=== PATIENT | female | born 1980 | race Caucasian/White ===

== ENCOUNTER 2022-02-15 07:54 | Outpatient (REF) | payer OTHER, SELFPAY ==
--- NOTE | ~2022-02-15 | XR_ITS ---
EXAMINATION: XR FINGER, LEFT CLINICAL INFORMATION: Pain COMPARISON: None TECHNIQUE: Three views of the left fifth finger. FINDINGS: Bone alignment is normal. No fracture or dislocation is seen. There is a small osteophyte along the volar DIP joint of the fifth finger. Joint spaces are otherwise normal. Soft tissues are normal. XR/XR finger LT min 2V IMPRESSION: Small osteophyte at the DIP joint otherwise unremarkable exam.
[2022-02-15 08:26] LABS: MANUAL DIFF FLAG NO
[2022-02-15 08:35] LABS: Basophils Percent Auto 0.7 % (0-2); Eosinophils Absolute Auto 0.3 X10*3/uL (0.0-0.4); Eosinophils Percent Auto 7.9 % (0-4); Hematocrit 40.7 % (37.0-47.0); Hemoglobin 13.8 g/dl (12.0-16.0); Imm Gran Abs Auto 0.01 X10*3/uL (0.00-0.03); Imm Gran Pct Auto 0.2 % (0.0-0.4); Lymphocytes Absolute Auto 1.6 X10*3/uL (1.2-4.9); Lymphocytes Percent Auto 36.5 % (20-40); Mean Corpuscular HGB Conc 33.9 g/dl (31.0-35.0); Mean Corpuscular Hemoglobin 32.4 pg (27.0-33.0); Mean Corpuscular Volume 95.5 fL (80.0-98.0); Mean Platelet Volume 9.8 fL (9.4-12.3); Monocytes Absolute Auto 0.3 X10*3/uL (0.1-1.2); Neutrophils Absolute Auto 2.1 x10*3/uL (2.0-8.3); Neutrophils Percent Auto 47.7 % (45-73); Platelet Count 236 X10*3/uL (160-400); Red Blood Count 4.26 X10*6/uL (4.20-5.50); Red Cell Distribution Width 12.5 % (11.0-16.0); White Blood Count 4.3 X10*3/uL (4.8-10.8)
[2022-02-15 08:57] LABS: Alanine Aminotransferase 14 U/L (0-31); Albumin Level 4.1 g/dL (3.5-5.0); Alkaline Phosphatase 30 U/L (39-117); Anion Gap 10 (12-20); Aspartate Amino Transferase 17 U/L (5-31); Bilirubin Total 1.1 mg/dL (0.0-1.0); Blood Urea Nitrogen 12 mg/dL (9-16); Calcium 9.4 mg/dL (8.4-10.2); Carbon Dioxide 28 mmol/L (22-29); Chloride 105 mmol/L (96-108); Cholesterol 181 mg/dL; Estimated Glomerular Filt Rate > 60; Glucose Random 89 mg/dL (60-115); HDL Cholesterol 63 mg/dL; LDL Cholesterol Calculated 106 mg/dl; Potassium 4.5 mmol/L (3.3-5.1); Sodium 138 mmol/L (135-145); Total Protein 6.9 g/dL (6.5-8.0); Triglycerides 61 mg/dL
[2022-02-15 09:21] LABS: Free T4 (Free Thyroxine) 0.99 ng/dL (0.71-1.85); Thyroid Stimulating Hormone 1.03 uIU/mL (0.32-4.0); Vitamin D 25-OH Total 29.4 ng/mL (>30)
== END 2022-02-15 07:55 | disposition home or self-care (01) ==
LOC: HO.LAB 07:54
PROVIDERS: PCP Internal Medicine; Visit Provider Physician Assistant
DX: Z00.00 Encounter for general adult medical examination without abnormal findings (principal); M79.645 Pain in left finger(s)
CPT/HCPCS: 36415; 73140; 80053; 80061; 82306; 84439; 84443; 85025

== ENCOUNTER 2023-05-23 15:12 | Outpatient (REF) | payer OTHER, SELFPAY ==
--- NOTE | ~2023-05-23 | XR_ITS ---
EXAMINATION: XR LUMBOSACRAL SPINE CLINICAL INFORMATION: Low back pain Patient states chronic back pain, no injury COMPARISON: None available. TECHNIQUE: Three views of the lumbosacral spine. FINDINGS: There are probably small riblets extending off the T12 vertebral body and 4 nonrib-bearing lumbar-type vertebral bodies. The height of the vertebral bodies is well-maintained. There is also the usual lumbar lordosis which can be seen with muscle spasm. There is mild disc space narrowing at L2-L3 and L3-L4. There is multilevel degenerative facet joint disease. There is mild retrolisthesis of L1 respect to L2, and L3 respect to L4. XR/XR lumbar spine 2-3V IMPRESSION: 1. Muscle spasm. 2. Degenerative disc disease at L2-L3 and L3-L4. 3. Multilevel degenerative facet joint disease. 4. Multilevel retrolisthesis.
== END 2023-05-23 15:13 | disposition home or self-care (01) ==
LOC: HO.XRAY 15:12
PROVIDERS: PCP Internal Medicine; Visit Provider Physician Assistant
DX: M54.59 Other low back pain (principal); G89.29 Other chronic pain
CPT/HCPCS: 72100

== ENCOUNTER 2023-11-03 08:30 | Outpatient (REF) | payer OTHER, SELFPAY ==
--- NOTE | ~2023-11-03 | XR_ITS ---
EXAMINATION: XR SACROILIAC JOINTS CLINICAL INFORMATION: Inflammation of sacroiliac joint Sacroiliitis, not elsewhere specified COMPARISON: None available. TECHNIQUE: 3 views of the sacroiliac joints FINDINGS: Bones and soft tissues are normal. No fracture. Alignment is anatomic. Sacroiliac joint spaces are well-maintained without erosions or surrounding sclerosis. T-shaped IUD is seen in the pelvis XR/XR sacroiliac joint min 3V IMPRESSION: Normal sacroiliac joints.
== END 2023-11-03 08:31 | disposition home or self-care (01) ==
LOC: HO.XRAY 08:30
PROVIDERS: PCP Internal Medicine; Visit Provider Internal Medicine
DX: M46.1 Sacroiliitis, not elsewhere classified (principal)
CPT/HCPCS: 72202

== ENCOUNTER 2024-04-26 10:02 | Outpatient (REF) | payer OTHER, SELFPAY ==
[2024-04-26 10:44] LABS: MANUAL DIFF FLAG NO
[2024-04-26 12:03] LABS: Basophils Absolute Auto 0.1 X10*3/uL (0.0-0.2); Basophils Percent Auto 1.2 % (0-2); Eosinophils Absolute Auto 0.5 X10*3/uL (0.0-0.4); Eosinophils Percent Auto 9.2 % (0-4); Hematocrit 41.2 % (37.0-47.0); Hemoglobin 14.1 g/dl (12.0-16.0); Imm Gran Abs Auto 0.02 X10*3/uL (0.00-0.03); Imm Gran Pct Auto 0.4 % (0.0-0.4); Lymphocytes Absolute Auto 1.5 X10*3/uL (1.2-4.9); Lymphocytes Percent Auto 29.9 % (20-40); Mean Corpuscular HGB Conc 34.2 g/dl (31.0-35.0); Mean Corpuscular Hemoglobin 32.2 pg (27.0-33.0); Mean Corpuscular Volume 94.1 fL (80.0-98.0); Mean Platelet Volume 10.8 fL (9.4-12.3); Monocytes Absolute Auto 0.4 X10*3/uL (0.1-1.2); Monocytes Percent Auto 7.8 % (2-11); Neutrophils Absolute Auto 2.6 x10*3/uL (2.0-8.3); Neutrophils Percent Auto 51.5 % (45-73); Platelet Count 288 X10*3/uL (160-400); Red Blood Count 4.38 X10*6/uL (4.20-5.50); Red Cell Distribution Width 12.3 % (11.0-16.0)
[2024-04-26 12:07] LABS: Estimated Average Glucose 97 mg/dL
[2024-04-26 12:45] LABS: Alanine Aminotransferase 15 U/L (0-31); Albumin Level 4.2 g/dL (3.5-5.0); Alkaline Phosphatase 29 U/L (39-117); Anion Gap 10 (12-20); Aspartate Amino Transferase 18 U/L (5-31); Bilirubin Total 0.6 mg/dL (0.0-1.0); Blood Urea Nitrogen 12 mg/dL (9-16); Calcium 8.9 mg/dL (8.4-10.2); Carbon Dioxide 26 mmol/L (22-29); Chloride 106 mmol/L (96-108); Cholesterol 163 mg/dL (<200); Estimated Glomerular Filt Rate > 60; Glucose Random 81 mg/dL (60-115); HDL Cholesterol 56 mg/dL (>40); LDL Cholesterol Calculated 98 mg/dL (<100); Potassium 4.8 mmol/L (3.3-5.1); Sodium 137 mmol/L (135-145); Total Protein 7.1 g/dL (6.5-8.0); Triglycerides 47 mg/dL (<150)
[2024-04-26 13:01] LABS: TSH reflex Free T4 0.69 uIU/mL (0.32-4.0)
[2024-05-01 12:13] LABS: Testosterone, Total 15 ng/dL (2-45)
[2024-05-01 13:04] LABS: VITAMIN D (1,25 OH) D3 51 pg/mL; Vit D (1,25-Dihydroxy) Total 51 pg/mL (18-72); Vitamin D (1,25 OH) D2 <8 pg/mL
[2024-05-01 20:08] LABS: Estrogen 337 pg/mL
[2024-05-03 02:39] LABS: Follicle Stimulating Hormone 2.9 mIU/mL; Prolactin 6.6 ng/mL
[2024-05-03 20:49] LABS: Estradiol Ultra Sensitive 161 pg/mL
== END 2024-04-26 10:03 | disposition home or self-care (01) ==
LOC: HO.LAB 10:02
PROVIDERS: PCP Internal Medicine; Visit Provider Physician Assistant
DX: Z00.00 Encounter for general adult medical examination without abnormal findings (principal); N95.9 Unspecified menopausal and perimenopausal disorder
CPT/HCPCS: 36415; 80053; 80061; 82652; 82670; 82672; 83001; 83002; 83036; 84144; 84146; 84403; 84443; 85025; 86787

== ENCOUNTER 2025-06-08 13:47 | Outpatient (AMB) | payer OTHER, SELFPAY ==
--- OUTSIDE RECORDS SUMMARY | 2022-11-15 19:25 | XMS_ITS | Encounter Summary ---
Author Organization [facility] Address [address] [place] [address] [place] [address] Phone Care Team Providers Care Java Systems Analyst Name Role Phone Scott Shrestha DO Primary Care Provider [phone] Encounter Details Date Type Department Care Team (Late st Contact Info) Description 11/15/2022 6:25 PM EST Hospital Encounter [facility] [address] [place] [address] Miriam Canela, [facility] [address] [facility], [address] [place] [address] [email or web address] Social History Tobacco Use Types Packs/Day Years [...] No fracture or dislocation. Miriambean He Hilton STUDIO ENGINEER IMG XR LOWER EXTREMITY Final Result documented in this encounter Visit Diagnoses Not on filedocumented in this encounter Care Teams Java Systems Analyst Relationship Specialty Start Date End Date Scott Shrestha DO [email or web address] PCP - General Internal Medicine 05/22/20 documented as of this encounter Additional Source Comments The information contained in this document represents components of the legal health record. It is not the complete legal health record.[facility]
--- NOTE | 2025-06-08 13:58 | HO.SPINEOV ---
Intake Visit Reasons: LBP Intake Note: Ms. Lr is here c/o low back pain. MRI done @ [facility] (brought disc). Former Hand Required: No Allergies Sulfa (Sulfonamide Antibiotics) (SULFA (SULFONAMIDE ANTIBIOTICS)) Allergy (Unknown, Unverified 07/01/20 15:18) FEVER, RASH Sulfacet-R Allergy (Unknown, Uncoded 03/03/19 00:00) Assessment & Plan Assessment & Plan (1) Back pain: Code(s): M54.9 - Dorsalgia, unspecified Category: Medical Plan This is a 45-year-old female presents today for evaluation of back pain. She feels like it may have started after her 2nd child was born via . She remembers going through physical therapy at that time because her body just did not feel quite right and strong enough. Since that time she has continued to have back pain which she describes as being over the lower lumbar area radiating down toward the sacrum. She was on ibuprofen but stopped that because it was not all that helpful and she did not want to just continue to take it with no endpoint in mind. She will modify her activities as needed but generally continues to be active, likes to take walks, plays soccer and ride her bike. When she is doing these things is not all that painful, but when she stops doing them she will notice the feelings of discomfort in her low back. There is also an associated feeling of tightness in her shoulders and tightness in her hips as well. She was seen at [facility] and they were heading in the direction of injections but she was looking for some kind of definitive answer as to what was causing it and what the injections would fix. She has not proceeded with that as of yet. She is here today with an MRI showing disc degeneration at L3-4 and L4-5. PMH: Otherwise healthy, history of in 2014 2017 Social hx: Does not smoke, occasionally uses alcohol and some marijuana Medications: Multivitamin Allergies: Sulfa Physical exam: Strength, gait and reflexes are normal Imaging review: Lumbar MRI shows mild disc degeneration at L3-4, [id number] disc degeneration at L4-5. There is some narrowing of the left L4 foramen secondary to disc bulging. There is no evidence of fracture, acute herniated disc, subluxation or malalignment of the spine. Impression: 45-year-old female with history of back pain dating back to 2018, is associated with feelings of tightness in her shoulders and tightness in her hips. She continues to do many of the activities she enjoys, but is frustrated that she has always seems to be in some degree of pain with her lumbar region. The pain can radiate down lower into ordered her sacrum as well. The exact source of this pain has been elusive as it has not responded to multiple rounds of physical therapy, activity modification, ibuprofen etc.. She does have some disc degeneration at L3-4 and L4-5 but it is [id number] at worse. It would be hard to suggest fusion in this circumstance given that she is so functional right now. Artificial disc is a consideration, but I would have to ask Dr. Meléndez if he thinks the discs are bad enough to warrant that. I will review her films and see if he has any other thoughts. In the meantime unfortunately I do not have an answer for her as to how to necessarily fix this. Thank you for allowing us to care for your patient. The total time spent with this visit with this patient was 45 minutes reviewing history, physical exam, lumbar imaging review, and implementation of treatment plan or further diagnostic testing Dalton Meléndez MD,PhD [facility] Coding Level of Care Code New Pt Level 4 (08733) Diagnoses Back pain M54.9
--- OUTSIDE RECORDS SUMMARY | 2025-06-08 15:06 | XMS_ITS | Clinical Summary ---
Author Organization [facility] Address [address] [place] [address] Phone Care Team Providers Care Product Coordinator Name Role Phone Scott Shrestha DO Primary Care Provider [phone] Allergies Active Allergy Reactions Criticality Noted Date Comments Sulfa (Sulfonamide Antibiotics) Medications diazePAM (VALIUM) 5 MG tablet Take 1 tablet (5 mg total) by mouth every 8 (eight) hours as needed for other (free text field) (muscle spasm). 10 tablet 0 Active Additional Information Patient not taking.Reported on 11/15/2022 predniSONE (DELTASONE) 10 MG tablet Take 1 tablet (10 mg total) by mouth daily. 60 mg for 2 days, then 40 mg for 2 days, then 20 mg for 2 days, then 10 mg for 2 days 26 tablet 0 Active Additional Information Patient not taking.Reported on 11/15/2022 biotin 10 mg Tab 1 tablet Active ibuprofen (ADVIL,MOTRIN) 800 MG tablet ibuprofen 800 mg tablet TAKE 1 TABLET BY MOUTH EVERY 8 HOURS FOR 5 DAYS Active Family History Medical History Relation Comments Hypertension Father 2 Stroke Father 2 CV disease Maternal Grandfather 2 Cancer Maternal Grandfather 2 Relation Status Comments Father 1 Alive Father 2 Maternal Grandfather 1 Maternal Grandfather 2 Social History Tobacco Use Types Packs/Day Years [...] AM EDT Sexual Orientation Not on file Last Filed Vital Signs Vital Sign Reading Time Taken Comments Blood Pressure 111/69 11/15/2022 5:52 PM EST Pulse 47 11/15/2022 5:52 PM EST Temperature 36.8 C (98.2 F) 11/15/2022 5:52 PM EST Respiratory Rate 16 11/15/2022 5:52 PM EST Oxygen Saturation 99% 11/15/2022 5:52 PM EST Inhaled Oxygen Concentration - - Weight 59 kg (130 lb) 11/15/2022 5:52 PM EST Height 157.5 cm (5' 2 ) 11/15/2022 5:52 PM EST Body Mass Index 23.78 11/15/2022 5:52 PM EST Plan of Treatment Health Maintenance Due Date Last Done Comments LIPID PANEL 1980 DEPRESSION SCREENING 1992 HEPATITIS C SCREENING 1998 HIV ONE-TIME SCREENING (18-6 5 YEARS) 1998 PAP SMEAR 2001 MAMMOGRAM 2020 COVID-19 VACCINE (2023-2 5 season) 2024 09/04/2021, 02/01/2021, 01/04/2021 COLOGUARD 2025 COLONOSCOPY 2025 COLORECTAL CANCER SCREENING 2025 FIT TEST 2025 FOBT 2025 SIGMOIDOSCOPY 2025 VIRTUAL COLONOSCOPY 2025 Adult Td,Tdap Booster 09/05/2027 09/05/2017 , 08/15/2017 SMOKING STATUS SCREENING (On ce After 26 Yrs) Completed 05/22/2020 HEPATITIS A VACCINES Aged Out No long er eligible based on patient's age to complete this topic HIB VACCINES Aged Out No longer eligi ble based on patient's age to complete this topic MENINGOCOCCAL VACCINES (ACWY) Aged Out No longer eligible based on patient's age to complete this topic MENINGOCOCCAL VACCINES (B) Aged Out N o longer eligible based on patient's age to complete this topic PNEUMOCOCCAL VACCINES (0-49 years) Aged Out No longer eligible b ased on patient's age to complete this topic Medical Devices Not on file Insurance CHOICE [place]ICE [place] [address] [place] [address] CHOICE CHOICE [facility] CHO[place] [address] [place] [address] COMMUNITY CHOICE CHOICE [facility] CHOICE Care Teams Product Coordinator Relationship Specialty Start Date End Date Scott Shrestha DO [email or web address] PCP - General Internal Medicine 05/22/20 Additional Source Comments The information contained in this document represents components of the legal health record. It is not the complete legal health record.[facility]
== END 2025-06-08 14:42 | disposition home or self-care (01) ==
LOC: HO.HNS 13:48
PROVIDERS: PCP Internal Medicine; Visit Provider Physician Assistant
DX: M54.9 Dorsalgia, unspecified (principal)
CPT/HCPCS: 99204

== ENCOUNTER 2025-09-04 08:02 | Outpatient (AMB) | payer OTHER, SELFPAY ==
--- OUTSIDE RECORDS SUMMARY | 2022-11-15 18:25 | XMS_ITS | Encounter Summary ---
Author Organization [facility] Address [address] [place] [address] [place] [address] Phone Care Team Providers Care Clerk Checker Name Role Phone Scott Shrestha DO Primary Care Provider [phone] Encounter Details Date Type Department Care Team (Late st Contact Info) Description 11/15/2022 6:25 PM EST Hospital Encounter [facility] [address] [place] [address] Miriam Canela, [facility] [address] [facility], [address] [place] [address] [email or web address] Social History Tobacco Use Types Packs/Day Years [...] No fracture or dislocation. Miriambean He Hilton GO CART MECHANIC IMG XR LOWER EXTREMITY Final Result documented in this encounter Visit Diagnoses Not on filedocumented in this encounter Care Teams Clerk Checker Relationship Specialty Start Date End Date Scott Shrestha DO [email or web address] PCP - General Internal Medicine 05/22/20 documented as of this encounter Additional Source Comments The information contained in this document represents components of the legal health record. It is not the complete legal health record.[facility]
--- NOTE | 2025-09-04 08:04 | A.OFFVIS_ITS ---
Vital Signs 09/04/25 08:11 Height 5 ft 2 in Weight 133 lb BMI 24.3 BP 110/70 Blood Pressure Location Rt brachial Position Sitting Pulse 70 Pulse Source Pulse Oximeter Pulse Oximetry (%) 96 Oxygen Delivery Method Room Air Intake Visit Reasons: colo screen Intake Note: New pt for initial colo screening. No pertinent surgical or FMHx. CC: C.O. occasional reflux and intermittent BM irregularities. Pt reports having intermittent bloating, constipation and diarrhea. Typically doesn't last longer than a week. Sustainable Communities Designer Required: No Accompanied by: Self / Same As Patient Allergies Sulfa (Sulfonamide Antibiotics) (SULFA (SULFONAMIDE ANTIBIOTICS)) Allergy (Unknown, Unverified 07/01/20 15:18) FEVER, RASH HPI HPI colo screen: Details: 45 year old? female is here today for pre colonoscopy screening.? Patient was sent to us by her PCP.? This is her first colonoscopy screening.? Patient denies any gastrointestinal symptoms in the past or at present.? However patient does admit to having occasional abdominal bloating with intermittent constipation and diarrhea. Patient reports that usually happens about her menstruation. Denies any personal or family history of gastrointestinal disease, colon polyps, or CRC.? Denies history of difficulty with sedation or anesthesia in the past.? Negative for history of sleep apnea.? Denies any history of cardiac, renal, pulmonary, or hepatic disease.?? No history of infectious? diseases like hepatitis A, B, C, HIV or tuberculosis.? Patient is not on any anticoagulation [facility] Medical History Perimenopausal disorder COVID-19 Bone spur GERD (gastroesophageal reflux disease) Lumbosacral radiculitis Chronic low back pain Cervical radiculopathy Degeneration of lumbar intervertebral disc Inflammation of sacroiliac joint Bronchitis Pneumonia Molluscum contagiosum Varicella Surgical History delivery delivered Family History Maternal Grandfather Bone cancer Myocardial infarction Father CVA (cerebral vascular accident) Daughter Seizure Social History Patient Tobacco Use Status: Never used Tobacco Review of Systems Const Denies weight gain and Denies weight loss ENT Reports no additional complaints, Denies dysphagia and Denies odynophagia Card Reports no additional complaints Resp Reports no additional complaints GI Denies abdominal pain, Denies belching, Denies melena, Denies bloating, Denies change in bowel habits, Denies dysphagia, Denies excessive flatus, Denies dyspepsia, Denies heartburn, Denies diarrhea, Denies loose stools, Denies nausea, Denies odynophagia and Denies vomiting Musc Reports no additional complaints Neuro Reports no additional complaints Psych Reports no additional complaints Endo Reports no additional complaints Physical Exam Vital Signs: Last Vital Signs Pulse 70 09/04/25 08:11 BP 110/70 09/04/25 08:11 Pulse Ox 96 09/04/25 08:11 Oxygen Delivery Method Room Air 09/04/25 08:11 BMI result Body Mass Index 24.3 Const General: healthy appearing, no acute distress and well developed Nutritional Appearance: well nourished Orientation/consciousness: patient oriented x3 Eyes General: appearance normal, both eyes and all related structures Cardio Rate: regular rate GI Inspection: Yes normal to inspection and No distended Palpation (GI): Soft to palpation, not firm, nontender and No hepatosplenomegaly present Auscultation: normal bowel sounds General: Yes no CVA tenderness Back/Spine/Pelvis Back: no CVA tenderness Skin General skin exam: elasticity normal, turgor normal and dry skin Neuro General: patient oriented x3 Psych Appearance: grossly normal Mental Status: mental status grossly normal Assessment & Plan Assessment & Plan (1) Screen for colon cancer: Code(s): Z12.11 - Encounter for screening for malignant neoplasm of colon Plan Patient denies any cardiac or respiratory symptoms.? Occasional bowel irregularities with abdominal bloating, alternating constipation and diarrhea. Patient reports symptoms are infrequent. Denies any issues with anesthesia in the past.? Denies any history of sleep apnea.? No history infectious diseases in the past or present.? Not on any anticoagulation therapy.? No family or personal history of colon cancer or polyps.? Patient denies melena, hematochezia, unintentional weight loss or ribbon like stools.? Discussed at length the pre- procedure,? prep, diet & medications as well as what to expect prior, during and after the procedure.?? Stressed the importance of good bowel prep.? Recommended the use of Vaseline or Calmoseptine OTC & baby wipes with bowel movements to promote comfort.? ?Patient verbalizes understanding and agrees to plan of care.? She was given the opportunity to ask questions and all questions answered.? We will see her after the procedure.? Orders: Referrals GI Procedure Notification Z12.11 - Encounter for screening for malignant neoplasm of colon Medications: New bisacodyl (Dulcolax (bisacodyl)) take 4 tabs at noon the day before your colonoscopy 20 mg (4 x 5 mg) PO ONCE 4 tabs 0RF constipation 1 day Z12.11 - Encounter for screening for malignant neoplasm of colon polyethylene glycol 3350 (Miralax) As directed by gastroenterology department at [facility] 238 grams PO ONCE 238 grams 0RF Z12.11 - Encounter for screening for malignant neoplasm of colon Coding Level of Care Code New Pt Level 3 (80753) Diagnoses Screen for colon cancer Z12.11 Time Spent (min) 40 Comment 30 minutes spent with patient and additional 10 minutes spent reviewing her records
--- OUTSIDE RECORDS SUMMARY | 2025-09-04 08:05 | XMS_ITS | Data Portability ---
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 REVIEW OF PRIOR EXTERNAL NOTES/RESULTS, ORDERING OF TEST(S) CATEGORY 2. ASSESSMENT REQUIRING INDEPENDENT HISTORIAN(S) INCLUDE WHO THE HISTORIAN IS AND RELATION TO PT AND WHY PT IS UNABLE TO GIVE COMPLETE HISTORY ELEMENT 3: RISK (LOW) RISK OF COMPLICATIONS AND/OR MORBIDITY OR MORTALITY OF PATIENT MANAGEMENT PROVIDER MUST THOROUGHLY DOCUMENT ALL OF THE ELEMENTS COVERED Not available 11/02/2023 16:47:40 Plan of Treatment Reminders Order Date Submit Date Provider Last Modified By Organization Details Last Modified Time Details Appointments ANNUA L EXAM 2025 02:15P ISI KOTHARI Not available Not available Not available Lab varic alise paez r virus IgG Ab, titer , serum 2023 024 [facility], [address] [place] [address], [place], [address], 04/29/2024 11:22:24 estra diol, serum 2023 024 [facility], [address] [place] [address], [id number], 05/05/2024 11:55:52 proge stero ne, serum 2023 024 [facility], [address] [place] [address], [address], 04/15/2024 09:08:27 lh + FSH, serum 2023 024 [facility], [address] [place] [address], [address], 05/05/2024 11:55:52 testo stero ne, total , serum 2023 024 [facility], [address] [place] [address], [address], 05/02/2024 11:24:55 estro gen, total , serum 2023 024 [facility], [address] [place] [address], [address], 05/02/2024 11:24:55 prola ctin, serum 2023 024 [facility], [address] [place] [address], [address], 05/05/2024 11:55:52 CBC w/ auto diff 2023 024 [facility], [address] [place] [address], [address], 04/15/2024 09:08:27 CMP, serum or plasm a 2023 024 [facility], [address] [place] [address], [address], 04/15/2024 09:08:28 vitam in D, 25-hy droxy , total , serum 2023 024 [facility], [address] [place] [address], [address], 04/15/2024 09:08:27 lipid panel , blood 2023 024 [facility], [address] [place] [address], [address], 04/15/2024 09:08:27 TSH + free T4, serum 2023 024 [facility], [address] [place] [address], [address], 04/15/2024 09:08:27 hemog lobin A1c, QN, blood 2023 024 [facility], [address] [place] [address], [address], 04/15/2024 09:08:27 Referral gastr kathia wyatt ist refer ral 2024 025 [facility], [address] [place] [address] Dr, [address], [place], [address], 05/18/2025 08:59:08 Procedures None recor ded. Surgeries None recor ded. Imaging MRI, lumba r spine , w/o contr ast - OPEN [facility] 2024 [email or web address], [facility], [address], [place], [address], 05/19/2025 08:22:06 XR, sacro iliac joint (s), 3 or more view 2023 024 [facility] (Imaging), [address] [place] [address], [address], 11/06/2023 09:27:50 XR, lumbo sacra l spine , 2 or 3 view 2022 023 [email or web address] 10 [facility] (Imaging), [address] [place] [address], [address], 04/18/2023 10:49:44 Medication Orders diclo fenac sodiu m 75 mg table t,del ayed relea se 2022 023 [place] [id number], [address] [place], [address], 04/04/2023 16:26:09 tizan idine 4 mg table t 2022 023 [email or web address] [id number], [address] [place], [address], 04/15/2024 08:56:25 Patient TargetsNo targets recorded. 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 [facility] (Medical Records) [address] [place], [address], 02/17/2022 10:34:17 08/04/20 22 08/04/2022 MAMMO , scree araceli, digit al, bilat eral No observ ation record ed. [email or web address] [facility]) [address], [place], [address], 08/05/2022 11:38:52 05/24/20 23 05/23/2023 XR, lumbo sacra l spine , 2 or 3 view No observ ation record ed. [facility] (Medical Records) [address] [place], [address], 05/25/2023 13:28:28 08/07/20 23 08/07/2023 MAMMO , scree araceli, digit al, bilat eral No observ ation record ed. [email or web address] [facility]) [address], [place], [address], 08/07/2023 18:24:06 11/06/19 24 11/03/2023 XR, sacro iliac joint (s), 3 or more view No observ [facility]ion [email or web address] [address] [facility], [place], [address], 11/12/2023 08:37:21 05/21/20 25 05/20/2025 MRI, lumba r spine , w/o contr ast No observ ation record ed. [email or web address] [facility] [address], [address], 05/22/2025 09:03:47 05/21/20 25 05/20/2025 MRI, lumba r spine , w/o contr ast No observ ation record ed. [email or web address] [facility] [address] [address], [place], [address], 05/22/2025 09:15:52 Result Notes None recorded. Problems Name Problem SNOMED Code Status Onset Date Resolution Date Notes Provider Name and Address Organization Details Recorded Time Molluscu m contagio sum infectio n 83111444 Active 2017 shave bx Not Available [facility] 3 19:48:[address] head. Headaches x 2 years- Unremarka ble Not Available [facility] 3 19:48:03 Varicell a 97133166 Active 2017 Not Available [facility] 3 19:48:03 Pneumoni a 719526105 Active 2017 Not Available [facility] 3 19:48:03 Bronchit is 84398694 Active 2017 Not Available [facility] 3 19:48:03 Seasonal allergy 231289296 Active 2017 Not Available [facility] 3 19:48:03 Heartbur n 89713988 Active 2017 Not Available [facility] 3 19:48:03 Cervical radiculo lavaro 61970863 Active 2021 Not Available [facility] 3 19:48:03 Pain in finger 47073125 Active 2021 [facility] Available [facility] 3 19:48:03 Impacted cerumen of bilatera l ears 31437323520 84561 Active 2021 Not Available [facility] 3 19:48:02 Bone spur of left hand 64006651225 9106 Active 2021 Not Available [facility] 3 19:48:03 COVID-19 317519544 Active 2022 Not Available [facility] 3 19:48:03 Chronic low back pain 678021870 Active 2022 ISI COLVIN [address] [place] [address], [address], [facility] 3 16:24:35 Inflamma tion of sacroili ac joint 76932474 Active 2023 Scott Shrestha DO [address] [place] [address], [address], [facility] 4 16:48:00 Weakness of left lower limb Active 2023 Scott Shrestha DO [address] [place] [address], [address], [facility] 4 22:06:45 Lumbosac ral radiculi tis 23905072 Active 2023 Scott Shrestha DO [address] [place] [address], [address], [facility] 4 19:10:19 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 Procedures Surgical History Date Name Laterality Status Provider Name and Address Organization Details Recorded Time 02/04/20 22 Cerumen Removal completed ISI COLVIN [address] [place] [address], [address], [facility] 02/03/2022 15:16:59 07/29/20 20 Date of Last Pap Smear completed Aleida Fenton [facility] 08/09/2020 16:15:53 10/15/19 18 delivery completed Jerilyn KIMI [address], [address], [facility] 06/06/2019 09:11:14 10/15/19 15 delivery completed [facility] [address], [address], [facility] 06/06/2019 09:11:11 Imaging Results None recorded. Procedure Notes None recorded. Medical Equipment None Reported. Allergies Allergen ID Allergen Name Allergen Category Reaction Reaction Severity Criticality Documentation Date Start Date Code Code System Note Provider Name and Address Organization Details Recorded Time 764 Substance with sulfonami de structure and antibacte rial mechanism of action (substanc e) medicatio n Not available Not available Not available 01/15/2018 62655 8003 SNOMED Aleida ramirez [facility] 8 08:17:13 Medications Name Sig Start Date Stop Date Status Note LastModified by Organization Details LastModified Time prednisone 10 mg tablet TAKE 50 MG X 3 DAYS TAKE 40 MG X 3 DAYS TAKE 30 MG X 3 DAYS TAKE 20 MG X 3 DAYS TAKE 10 MG X 3 DAYS 04/04 completed Not Available Not Available Not Available Prenatabs Rx 29 mg iron-1 mg tablet 10/04 completed Not Available Not Available Not Available azithromyci n 250 mg tablet 10/04 completed Not Available Not Available Not Available ibuprofen 800 mg tablet TAKE 1 TABLET BY MOUTH EVERY 8 HOURS FOR 5 DAYS active Not Available Not Available No t Available tizanidine 4 mg tablet Take 1 tablet 3 times a day by oral route as needed for 30 days. 04/15 completed Not Available Not Available Not Available prednisone 20 mg tablet 03/25 completed Not Available Not Available Not Available Zyrtec 10 mg tablet Take 1 tablet every day by oral route. active Not Available Not Available No t Available triamcinolo ne acetonide 0.1 % topical cream APPLY TO AFFECTED AREAS OF RASH TWICE DAILY UNTIL RESOLVED. REPEAT NEEDED FOR FLARES. 01/23 completed Not Available Not Available Not Available amoxicillin 500 mg tablet TAKE 1 TABLET BY MOUTH EVERY 8 HOURS FOR 7 DAYS 02/03 completed Not Available Not Available Not Available alprazolam 0.5 mg tablet TAKE 1 TAB 1 HOUR PRIOR TO INJECTION . active Not Available Not Available No t Available amoxicillin 875 mg tablet 03/25 completed Not Available Not Available Not Available diclofenac potassium 50 mg tablet Take 1 tablet twice a day by oral route. 10/04 completed Not Available Not Available Not Available diclofenac sodium 75 mg tablet,richy yed release TAKE 1 TABLET BY MOUTH TWICE A DAY WITH MEALS FOR 30 DAYS 2022 active Not Available Not Available Not Avai lable amoxicillin 250 mg capsule TAKE 1 CAPSULE BY MOUTH EVERY 8 HOURS FOR 7 DAYS 02/03 completed Not Available Not Available Not Available fluticasone propionate 50 mcg/actuati on nasal spray,suspe nsion 03/25 completed Not Available Not Available Not Available amoxicillin 875 mg-potassiu m clavulanate 125 mg tablet Take 1 tablet every 12 hours by oral route for 7 days. 06/06 completed Not Available Not Available Not Available Boostrix Tdap 2.5 Lf unit-8 mcg-5 Lf/0.5 mL intramuscul ar suspension 10/04 completed Not Available Not Available Not Available ProAir HFA 90 mcg/actuati on aerosol inhaler 01/15 completed Not Available Not Available Not Available Probiotic 01/23 completed Not Available Not Available Not Available Flucelvax Quad 1751-6008 (PF) 60 mcg (15 mcg x 4)/0.5 mL IM syringe 10/04 completed Not Available Not Available Not Available Paxlovid 300 mg (150 mg x 2)-100 mg tablets in a dose pack TAKE 3 TABLETS BY MOUTH TWICE A DAY FOR 5 DAYS 04/04 completed Not Available Not Available Not Available Vitals Date Recorded Body height Body mass index (BMI) Body weight Oxygen saturation Heart rate Systolic And Diastolic Provider Name and Address Organization Details Last Updated DateTime 4 157.48 cm 24.1 kg/m2 19322.1 9 g 99 % 58 /min 100/68 mm[Hg] Deisi Ledezma [facility] 4 16:33:39 Date Recorded Body height Oxygen saturation Heart rate Systolic And Diastolic Provider Name and Address Organization Details Last Updated DateTime 02/03/2022 158.12 cm 97 % 69 /min 98/60 mm[Hg] Brittany Fritz [facility] 02/03/2022 14:45:27 Date Recorded Body height Body mass index (BMI) Body weight Heart rate Oxygen saturation Systolic And Diastolic Provider Name and Address Organization Details Last Updated DateTime 3 157.48 cm 24.7 kg/m2 13135.9 7 g 71 /min 98 % 98/80 mm[Hg] Deisi Ledezma [facility] 3 15:46:44 Date Recorded Body height Body mass index (BMI) Body weight Heart rate Oxygen saturation Systolic And Diastolic Provider Name and Address Organization Details Last Updated DateTime 4 157.48 cm 24 kg/m2 31163.3 2 g 58 /min 99 % 106/62 mm[Hg] Jeffrey Tran [facility] 4 08:57:48 Date Recorded Body height Body mass index (BMI) Body weight Heart rate Oxygen saturation Systolic And Diastolic Provider Name and Address Organization Details Last Updated DateTime 5 157.48 cm 24.1 kg/m2 48327.1 9 g 58 /min 98 % 110/72 mm[Hg] Deisi Ledezma SOFIA Fitch [facility] 14:38:13 Social History Question Answer Notes LastModified by Organizat ion Details LastModified Time Tobacco Smoking Status Never Smoker Not Available [facility] 08/17/2020 03:36:23 What Was The Date Of Your Most Recent Tobacco Screening? 04/15/2024 [email or web address] Information not available 04/15/2024 How Much Tobacco Do You Smoke? No [id number] Information not available 08/17/2020 How Many Years Have You Smoked Tobacco? 0 [id number] Information not available 08/17/2020 Sex: Unknown Functional Status Question Answer Note LastModified by Organizat ion Details LastModified Time Do you or have you ever used any other forms of tobacco or nicotine? No [email or web address] Information not available 05/15/2025 Do you or have you ever used smokeless tobacco? Never used smokeless tobacco [email or web address] Information not available 01/23/2022 Do you or have you ever used e-cigarettes or vape? Never used electronic cigarettes [email or web address] Information not available 01/23/2022 Mental Status None recorded. Family History Relationship Description Onset Age of this Age Resolved Age Notes LastModified by Organization Details LastModified Time Maternal Grandfather History of malignant neoplasm of bone [email or web address] Not available 08/2022 14:22:20 Maternal Grandfather Myocardial infarction firefi karen [email or web address] Not available 06/06/2019 09:10:28 Father Cerebrovascu lar accident 59 [email or web address] Not available 12/2017 08:25:08 Daughter Seizure smoke in utero, seizur e at [email or web address] Not available 01/15/2018 08:25:46 Medical History No medical history recorded. Gynecological History Statement/Question Response Sexually Active? Y On BCP's at Conception? Y STIs/STDs N Date of Last Pap Smear 07/29/2020 Current Control Method None Age at Menarche 13 Age at First Child 35 Obstetrics History GPAL:G 3 P 2 0 1 2 Type Value Multiple Births 0 Full Term 2 Induced 1 Spontaneous 0 Premature 0 Living 2 Ectopics 0 Total 3 Immunizations Vaccine Type Date Status Note Provider Nam e and Address Organization Details Recorded Time COVID-19, mRNA, LNP-S, PF, 100 mcg/0.5mL dose or 50 mcg/0.25mL dose 1 completed Not Available [facility] 11/15/2022 19:48:03 COVID-19, mRNA, LNP-S, PF, 100 mcg/0.5mL dose or 50 mcg/0.25mL dose 1 completed Not Available [facility] 11/15/2022 19:48:03 COVID-19, mRNA, LNP-S, PF, 100 mcg/0.5mL dose or 50 mcg/0.25mL dose 1 completed Not Available [facility] 11/15/2022 19:48:03 Influenza, split virus, quadrivalent, preservative 7 completed Not Available [facility] 11/15/2022 19:48:03 Influenza, split virus, quadrivalent, preservative 1 completed Not Available [facility] 11/15/2022 19:48:03 Influenza, split virus, quadrivalent, preservative 2 completed Not Available [facility] 11/15/2022 19:48:03 Tdap 7 completed Not Available [facility] 11/15/2022 19:48:03 Past Encounters Encounter ID Performer Location Encounter Start Date Encounter Closed Date Diagnosis/Indication Diagnosis SNOMED-CT Code Diagnosis ICD10 Code Diagnosis IMO Codes Diagnosis Note [id number] January ANDREI Smith [facility] [address] [facility], [place] [address] 01/15/2018 13:32:43 01/15/2018 15:35:17 Low back pain 378557152 M54.5 [id number] Scott Shrestha [facility] [address] [facility], [place] [address] 10/04/2018 14:56:07 10/04/2018 15:51:18 Neuritis of left ulnar nerve 2098952829 6260349 G56.22 will refer to ortho as well Cervical radiculopathy 71975059 M54.12 will need done before MRI [id number] Scott Shrestha [facility] [address] [facility], [place] [address] 10/30/2018 12:03:12 10/30/2018 12:38:30 Degeneration of cervical intervertebral disc 40384172 M50.30 will have this [place] [id number] Scott Shrestha [facility] [address] [facility], [place] [address] 03/25/2019 08:51:33 03/25/2019 09:17:02 Acute tonsillitis 58039560 J03.90 [id number] Scott Wilkerson Henrietta [facility] [address] [facility], [place] [address] 06/06/2019 08:45:43 06/06/2019 10:39:24 Adult health examination 370060733 Z00.00 Active or passive immunization 745167142 Z23 Vitamin D deficiency 347 73462 E55.9 [id number] Scott Shrestha [facility] Internal [facility] [address] [facility], [place] [address] 01/23/2022 14:22:01 01/24/2022 14:33:16 Active or passive immunization 587027701 Z23 up to date Adult heal th examination 235694061 Z00.00 BP is excellent Cervical radiculopathy 70488256 M54.12 will fu with MRI due to worsening radiculopa thy Preventive dental procedure 10772614 Z01.20 will refill her amox dosage prior to root canal Pain in finger 80808793 M79.645 will fu with XR of her pinkie finger [id number] Scott Shrestha [facility] [address] [facility], [place] [address] 02/03/2022 14:37:11 02/06/2022 10:14:26 Impacted cerumen of bilateral ears 6086808364 469768 H61.23 resolved [id number] Scott Shrestha [facility] [address] [facility], [place] [address] 04/04/2023 15:32:59 04/06/2023 08:10:21 Adult health examination 523292301 Z00.00 BP is excellent Chronic low back pain 27 8834220 M54.59 will trial diclofenac and tizanidine combo [id number] Scott Shrestha [facility] [address] [facility], it[place] [address] 11/02/2023 15:57:33 11/05/2023 09:00:58 Inflammation of sacroiliac joint 64215777 M46.1 needs xray to determine if sacroiliit is vs sacral strain if pos will need lab esr HLA B27 etc and PT eval etc [id number] Scott Shrestha [facility] [address] [facility] [place] [address] 04/15/2024 08:47:15 04/16/2024 09:01:01 Active or passive immunization 100193033 Z23 up to date Adult heal th examination 126201053 Z00.00 BP is excellent Depression screening 171 660392 Z13.31 0 negative 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 will set up with lab work Low back pain 346223015 M54.59 will look into acupunctur edid PT, still does at home exercises [id number] Scott Shrestha [facility] [address] [facility],[place] [address] 05/15/2025 14:12:39 05/15/2025 15:07:01 Depression screening 423870073 Z13.31 0 negative General ex amination of patient 938235022 Z00.00 139595 BP is excellent Degenerati on of lumbar intervertebral disc 44901474 M51.362 0071617087 will try for the MRI again no improvemen t with PT and conservati ve therapy ie meds, patches, etc Screening colonoscopy 44 2488961 Z12.11 [id number] will set up colonoscop y Health Concerns Section Related Observation LastModified by Organization Detai ls LastModified Time None Recorded Concern Status LastModified by Organization Details LastModified Time None Recorded Advance Directives Directive None Recorded Payers Insurance Date Sequence Insurance Name Policy Number Policy [place] Covered Member ID [place] Member ID Guarantor Name 05/15/[address] [place] [address] [id number] Vaishali Lr [id number] Vaishali Peres 05/15/2025 1 [facility] INDEMNITY PLAN (INDEMNITY) [id number] Vaishali rL [id number] Vaishali Peres Notes Date Note Type Note Provider Name a nd Address Organization Details Recorded Time 2 text/html ROS as noted in the HPI f/u ear lavage bilateral ear lavage PER [place] after annual exam noted bilateral cerumen impaction after the patient noted she has fullness in both her ears and pressure ear lavage performed today by NG completed today in office, tolerated well ISI COLVIN [address] [place], [address], [facility] 02/03/2022 15:17:24 3 text/html Annual WellnessReported by PatientSocial/Behavio ral HistoryFor diet and nutrition, patient reportshealthy diet,discussed vitamin and supplement use,discussed portion control,discussed maintaining calcium balance, anddiscussed diet improvement. For fracture risk, patient reportsno history of fractures,no recent explained fracture,no sudden unexplained fractures, andno previous musculoskeletal injuries. For physical activity, patient reportsexercises on a regular basis,recent increase in physical activity,good physical condition,discussed weightbearing activities, anddiscussed exercise habits(plays soccer). For additional lifestyle factors, patient reportsno tobacco useanddrinks alcohol (mild-moderate) (socially, maybe during the weekends only)(some times uses edibles).Mental Status:For depression risk, patient reportsnever feels sad, empty, or tearful,no loss of interest in activities,no significant changes in weight,no sleep disturbances or insomnia,no agitation,no loss of energy,no feelings of worthlessness or guilt,no thoughts of suicide,no history of depression, andno history of mood disorders.Functional AbilityFor hearing, patient reportsno loss of hearing. For vision, patient reportsno vision problems(has eye exam scheduled next week). the patient has low back pain; bilateral around the SI joints and L5 to S1the patient reports that pain has been chronic for years (around 5)the patient reports during activity and when she plays soccer it feels finefirst thing in the morning it hurts a lotpain is also bad at night as well when she goes to bedthe patient has pain with bending, twisting and being in positions for long periods of time ISI COLVIN [address] [place], [address], [facility] 04/04/2023 16:38:07 4 text/html ROS as noted in the HPI having low back pain for months and is getting worsejust not getting betterdid PT and felt ok but did not get rid of pain Scott SaundraBolivar Shrestha, [address] [place], [address], [facility] [facility] 11/02/2023 16:52:36 4 text/html Annual WellnessReported by PatientSocial/Behavio ral HistoryFor diet and nutrition, patient reportshealthy diet,discussed vitamin and supplement use,discussed portion control,discussed maintaining calcium balance, anddiscussed diet improvement. For fracture risk, patient reportsno history of fractures,no recent explained fracture,no sudden unexplained fractures, andno previous musculoskeletal injuries. For physical activity, patient reportsexercises on a regular basis,recent increase in physical activity,good physical condition,discussed weightbearing activities, anddiscussed exercise habits. For additional lifestyle factors, patient reportsno tobacco useanddrinks alcohol (mild-moderate)(edibl es).Mental Status:For depression risk, patient reportsnever feels sad, empty, or tearful,no loss of interest in activities,no significant changes in weight,no sleep disturbances or insomnia,no agitation,no loss of energy,no feelings of worthlessness or guilt,no thoughts of suicide,no history of depression, andno history of mood disorders.Functional AbilityFor hearing, patient reportsno loss of hearing. For vision, patient reportsno vision problems(wears contacts and glasses).recent dental appt, goes every 6 mosROS as noted in the HPI ISI CLOVIN [address] [place], [address], [facility] 04/15/2024 09:21:25 5 text/html Annual WellnessReported by PatientSocial/Behavio ral HistoryFor diet and nutrition, patient reportshealthy diet,discussed vitamin and supplement use,discussed portion control,discussed maintaining calcium balance, anddiscussed diet improvement. For fracture risk, patient reportsno history of fractures,no recent explained fracture,no sudden unexplained fractures, andno previous musculoskeletal injuries. For physical activity, patient reportsexercises on a regular basis,recent increase in physical activity,good physical condition,discussed weightbearing activities, anddiscussed exercise habits. For additional lifestyle factors, patient reportsno tobacco useanddrinks alcohol (mild-moderate).Menta l Status:For depression risk, patient reportsnever feels sad, empty, or tearful,no loss of interest in activities,no significant changes in weight,no sleep disturbances or insomnia,no agitation,no loss of energy,no feelings of worthlessness or guilt,no thoughts of suicide,no history of depression, andno history of mood disorders.Functional AbilityFor hearing, patient reportsno loss of hearing. For vision, patient reportsno vision problems.ROS as noted in the HPI bilateral bunions, mild, recommended corrector brace ISI COLVIN [address] [facility], [place], [address], [facility] 05/15/2025 15:04:13 OBGyn Episode No OBEpisode recorded.
--- OUTSIDE RECORDS SUMMARY | 2025-09-04 08:06 | XMS_ITS | Clinical Summary ---
Author Organization [facility] Address [address] [place] [address] Phone Care Team Providers Care Owner/Photographer Name Role Phone Scott Shrestha DO Primary Care Provider Allergies Active Allergy Reactions Criticality Noted Date [...] YEARS) 1998 PAP SMEAR 2001 MAMMOGRAM 2020 INFLUENZA VACCINE (#1) 2025 , 09/09/2021, 09/05/2017 COLOGUARD 2025 COLONOSCOPY 2025 COLORECTAL CANCER SCREENING 2025 FIT TEST 2025 FOBT 2025 SIGMOIDOSCOPY 2025 VIRTUAL COLONOSCOPY 2025 COVID-19 VACCINE (2024-2 6 season) 2025 09/04/2021, 02/01/2021, 01/04/2021 Adult Td,Tdap Booster 09/05/2027 09/05/2017 , 08/15/2017 [...] topic Medical Devices Not on file [place] [address] [place] [id number] [place] [address] [place] [address] CHOICE CHOICE CHOICE CHOICE CHOICE CHOICE CHOICE Care Teams Owner/Photographer Relationship Specialty Start Date End Date Scott Shrestha DO [email or web address] PCP - General Internal Medicine 05/22/20 Additional Source Comments The information contained in this document represents components of the legal health record. It is not the complete legal health record.[facility]
[2025-09-04 08:11] VITALS: BP 110/70; PULSE 70; O2SAT 96; BMI 24.3
== END 2025-09-04 09:17 | disposition home or self-care (01) ==
LOC: HO.HGI 08:03
PROVIDERS: PCP Internal Medicine; Visit Provider Nurse Practitioner Family
DX: Z01.818 Encounter for other preprocedural examination (principal); Z12.11 Encounter for screening for malignant neoplasm of colon
CPT/HCPCS: S0285

== ENCOUNTER 2025-09-26 10:09 | Outpatient (AMB) | payer OTHER, SELFPAY ==
--- OUTSIDE RECORDS SUMMARY | 2022-11-15 18:25 | XMS_ITS | Encounter Summary ---
Author Organization [facility] Address [address] [place] [address] [place] [phone] Phone Care Team Providers Care Assistant Track And Field Coach Name Role Phone Scott Shrestah DO Primary Care Provider [phone] Encounter Details Date Type Department Care Team (Late st Contact Info) Description 11/15/2022 6:25 PM EST Hospital Encounter [facility] [address] [place] [phone] Miriam Canela, [employer] [employer] [address] [facility], [address] [place] [address] [email or web address] Social History Tobacco Use Types Packs/Day Years Used Date Smoking Tobacco: Never Smokeless Tobacco: Never Alcohol Use Standard Drinks/Week Comments Yes 0 (1 standard drink = 0.6 oz pur e alcohol) Education Answer Date Recorded Are you interested in more education? Not on luigi e 02/09/2023 Are you concerned about learning? Not on file 02/09/2023 No 02/09/2023 No 02/09/2023 Digital Access Answer Date Recorded No 03/09/2023 No 03/09/2023 Reliable internet access at home? Not on file 03/09/2023 Device with a working camera? Not on file Comments No Sex and Gender Information Value Date Recorded Sex Assigned at Female 05/22/2020 11:59 AM EDT Legal Sex Female 9:22 PM EDT Gender Identity Female 05/22/2020 11:59 AM EDT Sexual Orientation Not on file documented as of this encounter Plan of Treatment Not on file documented as of this encounter Procedures Procedure Name Priority Date/Time Associated Diagnosis Comments XR ANKLE 3 OR MORE VIEWS (LEFT) Urgent/patient waiting 11/15/2022 6:41 PM EST Sprain of left ankle, unspecified ligament, initial encounter documented in this encounter Results * XR ANKLE 3 OR MORE VIEWS (LEFT) (11/15/2022 6:41 PM EST) Anatomical Region Laterality Modality Ankle Left Computed Radiogr aphy 11/15/2022 6:46 PM EST Impressions 11/15/2022 6:47 PM EST No fracture or dislocation. Narrative 11/15/2022 6:47 PM EST XR ANKLE 3 OR MORE VIEWS (LEFT) COMPARISON: None. FINDINGS: No fracture. Normal alignment. Symmetric ankle mortise. Normal joint spaces. No ankle effusion. Mild soft tissue swelling overlying the lateral malleolus. Procedure Note Grace De Anda MD - 11/15/2022 XR ANKLE 3 OR MORE VIEWS (LEFT) COMPARISON: None. FINDINGS: No fracture. Normal alignment. Symmetric ankle mortise. Normal jointspaces. No ankle effusion. Mild soft tissue swelling overlying the lateralmalleolus. IMPRESSION: No fracture or dislocation. Miriambean He Hilton TELEVISION REPORTER IMG XR LOWER EXTREMITY Final Result documented in this encounter Visit Diagnoses Not on filedocumented in this encounter Care Teams Assistant Track And Field Coach Relationship Specialty Start Date End Date Scott Shrestha DO [email or web address] PCP - General Internal Medicine 05/22/20 documented as of this encounter Additional Source Comments The information contained in this document represents components of the legal health record. It is not the complete legal health record.[facility]
[2025-09-26 10:11] VITALS: BP 100/60; PULSE 55; RESP 16; TEMP 36.7; O2SAT 99; BMI 24.7
--- NOTE | 2025-09-26 10:11 | AM.OFFWIN_ITS ---
Intake Vital Signs 09/26/25 10:11 Height 5 ft 2 in Weight 135 lb BMI 24.7 BP 100/60 Blood Pressure Location Rt brachial Position Sitting Respiration 16 Pulse 55 Pulse Source Pulse Oximeter Temp 98.1 F Temp Source Oral Pulse Oximetry (%) 99 Oxygen Delivery Method Room Air Intake Visit Reasons: EP, sore throat w/ hives on neck Intake Note: Pt is here today c/o sore throat and hives on neck x3days Patient Tobacco Use Status: Never used Tobacco Allergies Sulfa (Sulfonamide Antibiotics) (SULFA (SULFONAMIDE ANTIBIOTICS)) Allergy (Unknown, Unverified 09/26/25 10:11) FEVER, RASH HPI EP, sore throat w/ hives on neck HPI Details rash on upper chest and neck and she noticed some dry itchy irritation in her throat for the past couple of days she tried some Benadryl and rash and throat irritation went away but then came back when she stopped the Benadryl she is not sure she should use Benadryl and cetirizine at the same time. no difficulty swallowing or breathing No sick contacts. No fevers or chills. Otherwise feels well no change in cosmetics, medication or foods. Does have pets [facility] Medical History Perimenopausal disorder COVID-19 Bone spur GERD (gastroesophageal reflux disease) Lumbosacral radiculitis Chronic low back pain Cervical radiculopathy Degeneration of lumbar intervertebral disc Inflammation of sacroiliac joint Bronchitis Pneumonia Molluscum contagiosum Varicella Surgical History delivery delivered Family History Maternal Grandfather Bone cancer Myocardial infarction Father CVA (cerebral vascular accident) Daughter Seizure Social History Patient Tobacco Use Status: Never used Tobacco Review of Systems Narrative see HPI Physical Exam Vital Signs: Last Vital Signs Temp 98.1 F 09/26/25 10:11 Pulse 55 09/26/25 10:11 Resp 16 09/26/25 10:11 BP 100/60 09/26/25 10:11 Pulse Ox 99 09/26/25 10:11 Oxygen Delivery Method Room Air 09/26/25 10:11 BMI result Body Mass Index 24.7 Const General: no acute distress and well developed Nutritional Appearance: well nourished Orientation/consciousness: patient oriented x3 HEENT Other: mild erythema in throat no exudate Head: Yes normocephalic and Yes atraumatic Eyes General: appearance normal, both eyes and all related structures Pupils: Equal, round and reactive pupils present EOM: EOMs intact bilaterally Resp Effort & Inspection: normal respiratory effort Skin Other: hives like rash on chest and neck Neuro General: patient oriented x3 and gait normal Cranial nerves: Yes Equal, round and reactive pupils present Psych Affect: normal affect Results AMB Rapid Strep AMB Rapid Strep Negative Last Edit by Xenia Lin CMA on 09/26/25 10:20 Results Reviewed Results Reviewed: Laboratory Last Values Strep Scn Rapid Clinic Negative 09/26/25 10:10 Assessment & Plan Assessment & Plan (1) Allergic reaction: Code(s): T78.40XA - Allergy, unspecified, initial encounter Plan: resume Benadryl q.6 to 8 hours over the weekend and can use cetirizine during the day if she needs to work, with Benadryl at night moisturizing lotion with no dyes or perfumes hydrate well humidified air watch for any exposures or triggers call or return to office if worsening or not improving seek medical attention right away if any difficulty swallowing or breathing Orders: Orders AMB Rapid Strep Screen Today Z13.9 - Encounter for screening, unspecified Coding Level of Care Code Est Pt Level 3 (25889) Diagnoses Allergic reaction T78.40XA
--- OUTSIDE RECORDS SUMMARY | 2025-09-26 10:11 | XMS_ITS | Data Portability ---
Author Organization [facility]health Patient Home Address [address] [place] [address] Assessment Encounter Date Assessment Date Assessment LastModified by Organization Details LastModified Time 11/02/2023 11/02/2023 [id number] [place] [id number] (BRUSH CUTTER) : MDM LOW MUST MEET 2 OF [...] IgG Ab, titer , serum 2023 024 [facility], [address] [place] [address], [place], [address], 04/29/2024 11:22:24 estra diol, serum 2023 024 [facility], [address] [place] [address], [id number], 05/05/2024 11:55:52 proge stero ne, serum 2023 024 [facility], [address] [place] [address], [id number], 04/15/2024 09:08:27 lh + FSH, serum 2023 024 [facility], [address] [place] [address], [id number], 05/05/2024 11:55:52 testo stero ne, total , serum 2023 024 [facility], [address] [place] [address], [address], 05/02/2024 11:24:55 estro gen, total , serum 2023 024 [facility], [address] [place] [address], [address], 05/02/2024 11:24:55 prola ctin, serum 2023 024 [facility], [address] [place] [address], [address], 05/05/2024 11:55:52 CBC w/ auto diff 2023 024 [facility], [address] [place] [address], [id number], 04/15/2024 09:08:27 CMP, serum or plasm a 2023 024 [facility], [address] [place] [address], [id number], 04/15/2024 09:08:28 vitam in D, 25-hy droxy , total , serum 2023 024 [facility], [address] [place] [address], [id number], 04/15/2024 09:08:27 lipid panel , blood 2023 024 [facility], [address] [place] [address], [address], 04/15/2024 09:08:27 TSH + free T4, serum 2023 024 [facility], [address] [place] [address], [id number], 04/15/2024 09:08:27 hemog lobin A1c, QN, blood 2023 024 [facility], [address] [place] [address], [address], 04/15/2024 09:08:27 Referral gastr kathia wyatt ist refer ral 2024 025 [facility], [address] [place] [address] [address], [address], [place], [address], 05/18/2025 08:59:08 Procedures None recor ded. Surgeries None recor ded. Imaging MRI, lumba r spine , w/o contr ast - OPEN MRI 2024 025 [email or web address] [place], [facility], [address], [place], [address], 05/19/2025 08:22:06 XR, sacro iliac joint (s), 3 or more view 2023 024 [facility] (Imaging), [address] [place] [address], [id number], 11/06/2023 09:27:50 XR, lumbo sacra l spine , 2 or 3 view 2022 023 [email or web address] 10 [facility] (Imaging), [address] [place] [address], [address], 04/18/2023 10:49:44 Medication Orders diclo fenac sodiu m 75 mg table t,del ayed relea se 2022 023 [place] [id number], [address] [place], [address], 04/04/2023 16:26:09 tizan idine 4 mg table t 2022 023 [email or web address] [id number], [address] [place], [address], 04/15/2024 08:56:25 Patient TargetsNo targets recorded. Patient Instructions Encounter Date Encounter Id Patient Instructions Last Modified By Organization Details Last Modified Time 11/02/2023 [id number] sacroiliac pain: exercises Not available 11/02/2023 16:49:38 Reason for Referral Registered Dental Assistant Referral for Screening colonoscopy needs colonoscopy Referring Physician: Margarita Mccall, Internal Medicine, Encounter Date: 05/15/2025 Results Created Date Observation Date Name Description Value Unit Range Abnormal Flag Note LastModifiedBy Organization Detail LastModifiedTime 02/16/2002/15/2022 XR, finge r(s), 2 or more view No observ ation record ed. [facility] (Medical Records) [address] [place], [address], 02/17/2022 10:34:17 08/04/20 22 08/04/2022 MAMMO , scree araceli, digit al, bilat eral No observ ation record ed. [email or web address] [facility]) [address], [place], [address], 08/05/2022 11:38:52 05/24/20 23 05/23/2023 XR, lumbo sacra l spine , 2 or 3 view No observ ation record ed. [facility] (Medical Records) [address] [place], [address], 05/25/2023 13:28:28 08/07/20 23 08/07/2023 MAMMO , scree araceli, digit al, bilat eral No observ ation record ed. [email or web address] [facility] ([facility]) [address], [place], [address], 08/07/2023 18:24:06 11/06/19 24 11/03/2023 XR, sacro iliac joint (s), 3 or more view No observ [facility]ion [facility] [address] [facility], [place], [address], 11/12/2023 08:37:21 05/21/20 25 05/20/2025 MRI, lumba r spine , w/o contr ast No observ ation record ed. [email or web address] [facility] [address], [address], 05/22/2025 09:03:47 05/21/20 25 05/20/2025 MRI, lumba r spine , w/o contr ast No observ ation record ed. [email or web address] [facility] [place] [address] [address], [place], [address], 05/22/2025 09:15:52 Result Notes None recorded. Problems Name Problem SNOMED Code Status Onset Date Resolution Date Notes Provider Name and Address Organization Details Recorded Time Molluscu m contagio sum infectio n 15402981 Active 2017 shave bx Not Available [facility] 3 19:48:[address] head. Headaches x 2 years- Unremarka ble Not Available [facility] 3 19:48:03 Varicell a 74481068 Active 2017 Not Available [facility] 3 19:48:03 Pneumoni a 065059763 Active 2017 Not Available [facility] 3 19:48:03 Bronchit is 12185092 Active 2017 Not Available [facility] 3 19:48:03 Seasonal allergy 046446378 Active 2017 Not Available [facility] 3 19:48:03 Heartbur n 77397679 Active 2017 Not Available [facility] 3 19:48:03 Cervical radiculo alvaro 38611295 Active 2021 Not Available [facility] 3 19:48:03 Pain in finger 21252130 Active 2021 Not Available [facility] 3 19:48:03 Impacted cerumen of bilatera l ears 53225305990 25543 Active 2021 Not Available [facility] 3 19:48:02 Bone spur of left hand 24792678825 9106 Active 2021 Not Available [facility] 3 19:48:03 COVID-19 125749992 Active 2022 Not Available [facility] 3 19:48:03 Chronic low back pain 840824096 Active 2022 ISI COLVIN [address] [place] [address], [address], [facility] 3 16:24:35 Inflamma tion of sacroili ac joint 86892964 Active 2023 Scott Shrestha DO [address] [place] [address], [address], [facility] 4 16:48:00 Weakness of left lower limb Active 2023 Scott Shrestha DO [address] [place] [address], [address], [facility] 4 22:06:45 Lumbosac ral radiculi tis 12232145 Active 2023 Scott Shrestha DO [address] [place] [address], [address], [facility] 4 19:10:19 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 Procedures Surgical History Date Name Laterality Status Provider Name and Address Organization Details Recorded Time 02/04/20 22 Cerumen Removal completed ISI COLVIN [address] [place] [address], [address], [facility] 02/03/2022 15:16:59 07/29/20 20 Date of Last Pap Smear completed Aleida Fenton [facility] 08/09/2020 16:15:53 10/15/19 18 delivery completed Jerilyn KIMI [address], [address], [facility] 06/06/2019 09:11:14 10/15/19 15 delivery completed [facility] [address], [address], [facility] 06/06/2019 09:11:11 Imaging Results None recorded. Procedure [...] Not available Not available Not available 01/15/2018 19076 8003 SNOMED Aleida ramirez [facility] Internal [facility] 8 08:17:13 Medications Name Sig Start Date [...] Available Not Available Not Available Flucelvax Quad 6571-1888 (PF) 60 mcg (15 mcg x 4)/0.5 [...] Updated DateTime 4 157.48 cm 24.1 kg/m2 99517.1 9 g 99 % 58 /min 100/68 mm[Hg] Deisi Ledezma [facility] 4 16:33:39 Date Recorded Body height Oxygen saturation Heart rate Systolic And Diastolic Provider Name and Address Organization Details Last Updated DateTime 02/03/2022 158.12 cm 97 % 69 /min 98/60 mm[Hg] Brittany Fritz [facility] 02/03/2022 14:45:27 Date Recorded Body height Body mass index (BMI) Body weight Heart rate Oxygen saturation Systolic And Diastolic Provider Name and Address Organization Details Last Updated DateTime 3 157.48 cm 24.7 kg/m2 27488.9 7 g 71 /min 98 % 98/80 mm[Hg] Deisi Ledezma [facility] 3 15:46:44 Date Recorded Body height Body mass index (BMI) Body weight Heart rate Oxygen saturation Systolic And Diastolic Provider Name and Address Organization Details Last Updated DateTime 4 157.48 cm 24 kg/m2 19081.3 2 g 58 /min 99 % 106/62 mm[Hg] Jeffrey Tran [facility] 4 08:57:48 Date Recorded Body height Body mass index (BMI) Body weight Heart rate Oxygen saturation Systolic And Diastolic Provider Name and Address Organization Details Last Updated DateTime 5 157.48 cm 24.1 kg/m2 20095.1 9 g 58 /min 98 % 110/72 mm[Hg] Deisi Ledezma SOFIA Fitch [facility] 14:38:13 Social History Question Answer Notes LastModified by Organizat ion Details LastModified Time Tobacco Smoking Status Never Smoker Not Available [facility] 08/17/2020 03:36:23 What Was The Date Of Your Most Recent Tobacco Screening? 04/15/2024 [email or web address] Information not available 04/15/2024 How Much Tobacco Do You Smoke? No [id number] Information not available 08/17/2020 How Many Years Have You Smoked Tobacco? 0 [id number] Information not available 08/17/2020 Sex: Unknown Functional Status Question Answer Note LastModified by Organizat ion Details LastModified Time Do you or have you ever used any other forms of tobacco or nicotine? No [email or web address] Information not available 05/15/2025 Do you or have you ever used smokeless tobacco? Never used smokeless tobacco [email or web address] Information not available 01/23/2022 Do you or have you ever used e-cigarettes or vape? Never used electronic cigarettes [email or web address] Information not available 01/23/2022 Mental Status None recorded. Family History Relationship Description Onset Age of this Age Resolved Age Notes LastModified by Organization Details LastModified Time Maternal Grandfather History of malignant neoplasm of bone [email or web address] Not available 08/2022 14:22:20 Maternal Grandfather Myocardial [...] 50 mcg/0.25mL dose 1 completed Not Available [facility] 11/15/2022 19:48:03 COVID-19, mRNA, LNP-S, PF, 100 mcg/0.5mL dose or 50 mcg/0.25mL dose 1 completed Not Available [facility] 11/15/2022 19:48:03 COVID-19, mRNA, LNP-S, PF, 100 mcg/0.5mL dose or 50 mcg/0.25mL dose 1 completed Not Available [facility] 11/15/2022 19:48:03 Influenza, split virus, quadrivalent, preservative 7 completed Not Available [facility] 11/15/2022 19:48:03 Influenza, split virus, quadrivalent, preservative 1 completed Not Available [facility] 11/15/2022 19:48:03 Influenza, split virus, quadrivalent, preservative 2 completed Not Available [facility] 11/15/2022 19:48:03 Tdap 7 completed Not Available [facility] 11/15/2022 19:48:03 Past Encounters Encounter ID Performer Location Encounter Start Date Encounter Closed Date Diagnosis/Indication Diagnosis SNOMED-CT Code Diagnosis ICD10 Code Diagnosis IMO Codes Diagnosis Note [id number] January ANDREI Smith [facility] [address] [facility], [place] [address] 01/15/2018 13:32:43 01/15/2018 15:35:17 Low back pain 075057929 M54.5 [id number] Scott Shrestha [facility] [address] [facility], [place] [address] 10/04/2018 14:56:07 10/04/2018 15:51:18 Neuritis of left ulnar nerve 6255905880 8121469 G56.22 will refer to ortho as well Cervical radiculopathy 02414640 M54.12 will need done before MRI [id number] Scott Shrestha [facility] [address] [facility], [place] [address] 10/30/2018 12:03:12 10/30/2018 12:38:30 Degeneration of cervical intervertebral disc 59986214 M50.30 will have this [place] [id number] Scott Shrestha [facility] [address] [facility], [place] [address] 03/25/2019 08:51:33 03/25/2019 09:17:02 Acute tonsillitis 10137815 J03.90 [id number] Scott Wilkerson Henrietta [facility] [address] [facility], [facility] [place] [address] 06/06/2019 08:45:43 06/06/2019 10:39:24 Adult health examination 661042855 Z00.00 Active or passive immunization 967039067 Z23 Vitamin D deficiency 347 17449 E55.9 [id number] Scott Shrestha [facility] Internal [facility] [address] [facility], [place] [address] 01/23/2022 14:22:01 01/24/2022 14:33:16 Active or passive immunization 194800581 Z23 up to date Adult heal th examination 159662155 Z00.00 BP is excellent Cervical radiculopathy 87762121 M54.12 will fu with MRI due to worsening radiculopa thy Preventive dental procedure 36189514 Z01.20 will refill her amox dosage prior to root canal Pain in finger 12633509 M79.645 will fu with XR of her pinkie finger [id number] Scott Shrestha [facility] [address] [facility], [place] [address] 02/03/2022 14:37:11 02/06/2022 10:14:26 Impacted cerumen of bilateral ears 1498948956 223061 H61.23 resolved [id number] Scott Shrestha [facility] [address] [facility], [place] [address] 04/04/2023 15:32:59 04/06/2023 08:10:21 Adult health examination 740212818 Z00.00 BP is excellent Chronic low back pain 27 9896017 M54.59 will trial diclofenac and tizanidine combo [id number] Scott Shrestha [facility] [address] [facility], [place] [address] 11/02/2023 15:57:33 11/05/2023 09:00:58 Inflammation of sacroiliac joint 99041972 M46.1 needs xray to determine if sacroiliit is vs sacral strain if pos will need lab esr HLA B27 etc and PT eval etc [id number] Scott Shrestha [facility] [address] [facility] [address] [address] 04/15/2024 08:47:15 04/16/2024 09:01:01 Active or passive immunization 914189664 Z23 up to date Adult heal th examination 810388477 Z00.00 BP is excellent Depression screening 171 621643 Z13.31 0 negative Perimenopa usal disorder 070754942 N95.9 will set up with lab work Low back pain 555755840 M54.59 will look into acupunctur edid PT, still does at home exercises [id number] Scott Shrestha [facility] [address] [facility],[place] [address] 05/15/2025 14:12:39 05/15/2025 15:07:01 Depression screening 017948956 Z13.31 0 negative General ex amination of patient 391241837 Z00.00 885037 BP is excellent Degenerati on of lumbar intervertebral disc 99080468 M51.362 3335438657 will try for the MRI again no improvemen t with PT and conservati ve therapy ie meds, patches, etc Screening colonoscopy 44 9782575 Z12.11 158182 will set up colonoscop y Health Concerns Section Related Observation LastModified by Organization Detai ls LastModified Time None Recorded Concern Status LastModified by Organization Details LastModified Time None Recorded Advance Directives Directive None Recorded Payers Insurance Date Sequence Insurance Name Policy Number Policy [place] Covered Member ID [place] Member ID Guarantor Name 05/15/[address] [place] [address] [id number] Vaishali Lr [id number] Vaishali Peres 05/15/2025 1 [facility] INDEMNITY PLAN (INDEMNITY) [id number] Vaishali Lr [id number] Vaishali Peres Notes Date Note Type Note Provider Name a nd Address Organization Details Recorded Time 2 text/html ROS as noted in the HPI f/u ear lavage bilateral ear lavage PER SD after annual exam noted bilateral cerumen impaction after the patient noted she has fullness in both her ears and pressure ear lavage performed today by NG completed today in office, tolerated well ISI COLVIN [address] [place], [address], [facility] 02/03/2022 15:17:24 3 text/html Annual [...] long periods of time ISI COLVIN [address] [place], [address], [facility] 04/04/2023 16:38:07 4 text/html ROS as noted in the HPI having low back pain for months and is getting worsejust not getting betterdid PT and felt ok but did not get rid of pain Scott SaundraBolivar Shrestha, [address] [place], [address], [facility] Internal [facility] 11/02/2023 16:52:36 4 text/html Annual WellnessReported by [...] mosROS as noted in the HPI ISI COLVIN [address] [place], [address], [facility] 04/15/2024 09:21:25 5 text/html Annual [...] mild, recommended corrector brace ISI COLVIN [address] [facility], [place], [address], [facility] 05/15/2025 15:04:13 OBGyn Episode No OBEpisode recorded.
--- OUTSIDE RECORDS SUMMARY | 2025-09-26 10:11 | XMS_ITS | Clinical Summary ---
Author Organization [facility] Address [address] [place] [id number] Phone Care Team Providers Care Tank Bottom Assembler Name Role Phone Scott Shrestha DO Primary Care Provider [phone] Allergies Active Allergy Reactions Criticality Noted Date [...] topic Medical Devices Not on file [place] [address] [address] [address] [place] [address] [address] CHOICE CHOICE CHOICE CHOICE CHOICE CHOICE CHOICE Care Teams Tank Bottom Assembler Relationship Specialty Start Date End Date Scott Shrestha DO [email or web address] PCP - General Internal Medicine 05/22/20 Additional Source Comments The information contained in this document represents components of the legal health record. It is not the complete legal health record.[facility]
== END 2025-09-26 10:44 | disposition home or self-care (01) ==
PROVIDERS: PCP Internal Medicine; Visit Provider Family Medicine
DX: Z13.9 Encounter for screening, unspecified (principal); T78.40XA Allergy, unspecified, initial encounter

== ENCOUNTER → 2025-09-26 10:09 | Outpatient (BNVA) | payer OTHER, SELFPAY | PROVIDERS: PCP Internal Medicine | DX: T78.40XA Allergy, unspecified, initial encounter (principal) | CPT/HCPCS: 87880 ==